=== PATIENT | male | born 1995 | race Caucasian/White ===

== ENCOUNTER 2017-02-24 16:13 | Emergency (ER) | payer BC ==
--- NOTE | ~2017-02-24 | ER ---
PATIENT'S NAME: DEJON FIGUEROA [facility] AGE: 21 Y [address] ROOM: [place] [address] LOCATION: ED ADMIT DATE: 02/24/2017 ER/Outpatient Report DISCHARGE DATE: 02/24/2017 FAMILY PHYSICIAN: PHYSICIAN, NO ATTENDING PHYSICIAN: Neal Peters CHIEF COMPLAINT: Overdose. HISTORY OF PRESENT ILLNESS: Dejon presents accompanied by his sister and his girlfriend for evaluation of confusion. He has taken Ativan and alcohol today. Exact quantities are unclear. Ativan reports have been between 1 and 10 tablets. He also has taken escitalopram today. Supposedly, he drank half a bottle of vodka which we can ascertain as best we can to be a 750 mL bottle. The patient has a history of report of suicide attempt by overdosing on his pre-workout powder and becoming intoxicated when he was 16. He has no specific complaints along those lines today. His sister was very concerned about him not making sense and thus initiated emergency evaluation today. The patient denies any other medical issues and mom notes that he has had some kidney issues in the past related to all the supplements. PAST MEDICAL HISTORY: Documented on the record and reviewed by me. SOCIAL HISTORY: Documented on the record and reviewed by me. MEDICATIONS: Documented on the record and reviewed by me. ALLERGIES: DOCUMENTED ON THE RECORD AND REVIEWED BY ME. REVIEW OF SYSTEMS: All systems reviewed and negative except as noted in the HPI. PHYSICAL EXAMINATION: VITAL SIGNS: Blood pressure 113/67, pulse 78, respiratory rate 20, temperature 96.7, SpO2 is 99% on room air. Pain 0/10. GENERAL: Age-appropriate male, recumbent on exam table. Very somnolent, but easily arousable. NEUROLOGIC: The patient is sleeping. He has slightly pale color. He is very sleepy, falls asleep during exam, but wakes to voice. HEENT: Normocephalic, atraumatic. Eyes are PERRL. Pupils are dilated at 9- PATIENT'S NAME: DEJON FIGUEROA [facility] AGE: 21 Y [address] ROOM: [place] [address] LOCATION: [facility] ADMIT DATE: 02/24/2017 ER/Outpatient Report DISCHARGE DATE: 02/24/2017 FAMILY PHYSICIAN: PHYSICIAN, NO ATTENDING PHYSICIAN: Neal Peters 10 mm. Extraocular movements are intact. Sclerae are slightly injected. Oropharynx is clear and moist. NECK: Supple. Trachea is midline. CHEST: Heart is regular rate and rhythm with no murmurs. LUNGS: Clear to auscultation bilateral. No rhonchi, wheezes, or rales, with normal respiratory rate. ABDOMEN: Soft, nontender, and nondistended. No rebound or guarding. BACK: Normal to inspection. EXTREMITIES: Warm and well perfused. No deformities. SKIN: Clean, dry, intact. No rashes. DIAGNOSTIC DATA: Imaging, none. EKG, sinus rhythm, rate of 75 with normal intervals and axis. No signs of acute abnormalities. Urine drug screen with no positive results. CMS with a potassium of 3.6, creatinine 1.6, GFR is 61, alcohol is 0.103. Acetaminophen and salicylate are undetectable. CBC is unremarkable. IMPRESSION: 1. Alcohol intoxication. 2. Poor medication use outside a prescription parameters. 3. Azotemia of unclear etiology. EMERGENCY DEPARTMENT COURSE: The patient was seen and evaluated as above. His mother did come to bedside. The patient cleared rapidly with administration of 2 L of normal saline. He denies any suicidal ideation. He was evaluated by police and by Ryan Leo. No cause for psychiatric admission at this time. Discuss his elevation of creatinine today with both mother and the patient. He has a history of having elevated creatinine according to his mother secondary to all the supplement use as he is very much into body building. I believe the patient should have this rechecked within 24-48 hours for ensuring that this is not a more chronic issue. The patient was ambulatory and in good spirits upon discharge. He was discharged to the care of his mother. All questions were answered and the patient was discharged in good condition. NEAL PETERS MD PATIENT'S NAME: DEJON FIGUEROA [facility] AGE: 21 Y [address] ROOM: [place] [address] LOCATION: ED ADMIT DATE: 02/24/2017 ER/Outpatient Report DISCHARGE DATE: 02/24/2017 FAMILY PHYSICIAN: PHYSICIAN, NO ATTENDING PHYSICIAN: Neal Peters JH/ranjit /[id number] d: 02/25/17 1058 t: 03/08/17 0621, OUTPATIENT REPORT
[2017-02-24 16:45] LABS: BASOPHIL % 0.5 %; EOSINOPHIL # 0.1 K/uL (0.0-0.5); EOSINOPHIL % 0.6 %; HEMATOCRIT 44.6 % (37.0-53.0); IMMATURE GRANULOCYTE % 0.1 %; LYMPHOCYTE # 2.3 K/uL (0.8-4.0); LYMPHOCYTE % 27.5 %; MCH 32.5 pg (27.0-34.0); MCHC 35.9 gm/dL (32.0-36.5); MCV 90.7 fl (83.0-98.0); MONOCYTE # 0.6 K/uL (0.0-1.0); MONOCYTE % 7.6 %; MPV 10.4 fl (9.4-12.4); NEUTROPHIL # (ANC) 5.3 K/uL (1.4-9.0); NEUTROPHIL % 63.7 %; NRBC % 0 /100WBC (0-0.00); PLATELET COUNT 248 K/uL (150-450); RBC 4.92 M/uL (4.00-6.00); RDW-CV 13.1 % (11.9-14.6); WBC 8.3 K/uL (4.0-11.0)
[2017-02-24 17:05] LABS: ALBUMIN 4.3 gm/dL (3.5-5.0); ALK PHOS 105 IU/L (33-138); ALT 40 IU/L (12-78); ANION GAP 11.6 (10.0-19.0); AST 34 IU/L (10-40); BLOOD UREA NITROGEN 14 mg/dL (6-24); CALCIUM 8.7 mg/dL (8.5-10.5); CHLORIDE 107 mMol/L (96-110); CO2 26 mMol/L (22-32); CREATININE 1.6 mg/dL (0.6-1.3); POTASSIUM 3.6 mMol/L (3.7-5.1); SODIUM 141 mMol/L (135-145); TOTAL BILIRUBIN 0.6 mg/dL (0.0-1.5); TOTAL PROTEIN 7.6 g/dL (6.0-8.4)
[2017-02-24 17:05] LABS: AMPHETAMINE NEGATIVE (NEGATIVE); BARBITURATE NEGATIVE (NEGATIVE); COCAINE NEGATIVE (NEGATIVE); OPIATES NEGATIVE (NEGATIVE)
== END 2017-02-24 18:20 | disposition disaster alternative care site (69) ==
LOC: GMED 16:13
PROVIDERS: Emergency Medicine
DX: F10.129 Alcohol abuse with intoxication, unspecified (principal); R79.89 Other specified abnormal findings of blood chemistry; F32.9 Major depressive disorder, single episode, unspecified; Z79.891 Long term (current) use of opiate analgesic; Z79.899 Other long term (current) drug therapy; Y90.5 Blood alcohol level of 100-119 mg/100 ml
CPT/HCPCS: G0480; J7030